=== PATIENT | female | born 1935 | race African-American/Black ===

== ENCOUNTER 2022-10-20 00:53 | Inpatient (IN) | payer MEDICARE, MEDICAID ==
[2022-10-20] MEDS ORDERED: Acetaminophen 325 MG TAB PER TUBE PRN (02:53)
[2022-10-20] MEDS: Sodium Chloride 0.45% 1,000 ML IV SCH ×2 (03:22→16:36)
[2022-10-20] MEDS: metroNIDAZOLE 500 MG in Premix Bag 1 BAG IVPB SCH ×2 (04:02→11:20)
[2022-10-20 05:01] LABS: #Monocytes 0.4 10x3/uL (0.0-1.1); #Neutrophils 12.4 10x3/uL (1.5-8.4); %Basophils 0.1 % (0.0-2.0); %Lymphocytes 7.5 % (18.0-47.0); Hemoglobin 7.6 g/dL (12.0-15.5); Mean Corpuscular Hemoglobin 24.4 pg (27.0-33.0); Mean Corpuscular Volume 81.4 fl (81.6-98.3); Mean Platelet Volume 10.1 fl (7.4-10.4); Platelet Count 460 10x3/uL (150-450); RBC Distribution Width 18.6 % (11.5-14.5); Red Blood Cell (RBC) Count 3.11 10x6/uL (3.90-5.03)
[2022-10-20 05:14] LABS: Anion Gap 13 mmol/L (10-20); BUN (Urea Nitrogen) 10 mg/dL (9.8-20.1); Calc. Creatinine Clearance 24 mL/min (70-130); Calcium 8.7 mg/dL (7.8-10.44); Carbon Dioxide 19 mmol/L (23-31); Chloride 114 mmol/L (98-107); Estimated GFR 87; Glucose 181 mg/dL (83-110); Magnesium 2.3 mg/dL (1.6-2.6); Potassium 4.2 mmol/L (3.5-5.1); Sodium 142 mmol/L (136-145)
[2022-10-20] MEDS: Oseltamivir 6 MG/ML ORAL SUSP PO SCH ×3 (08:25→23:58)
[2022-10-20] MEDS ORDERED: FLU VACC QS2022-23(65YR UP)/PF 240 MCG/0.7 ML SYRINGE IM ONE (09:00)
[2022-10-21] MEDS: metroNIDAZOLE 500 MG in Premix Bag 1 BAG IVPB SCH ×5 (02:54→22:24)
[2022-10-21] MEDS: Levothyroxine Sodium 50 MCG TAB PO SCH (05:48)
[2022-10-21] MEDS: Sodium Chloride 0.45% 1,000 ML IV SCH ×2 (07:19→20:05)
[2022-10-21] MEDS: Oseltamivir 6 MG/ML ORAL SUSP PO SCH ×2 (09:33→22:24)
[2022-10-21] MEDS: Lansoprazole 3 MG/ML ORAL SUSPENSION PER TUBE SCH (09:33)
[2022-10-22 05:16] LABS: #Monocytes 0.8 10x3/uL (0.0-1.1); #Neutrophils 5.2 10x3/uL (1.5-8.4); %Basophils 0.4 % (0.0-2.0); %Eosinophils 0.5 % (0.0-6.0); %Lymphocytes 25.8 % (18.0-47.0); %Monocytes 9.5 % (0.0-10.0); %Neutrophils 63.3 % (40.0-75.0); Hemoglobin 7.4 g/dL (12.0-15.5); Mean Corpuscular HGB CONC 29.2 g/dL (32.0-36.0); Mean Corpuscular Hemoglobin 23.5 pg (27.0-33.0); Mean Corpuscular Volume 80.3 fl (81.6-98.3); Mean Platelet Volume 10.2 fl (7.4-10.4); Platelet Count 493 10x3/uL (150-450); RBC Distribution Width 18.6 % (11.5-14.5); Red Blood Cell (RBC) Count 3.15 10x6/uL (3.90-5.03); White Blood Cell (WBC) Count 8.2 10x3/uL (3.5-10.5)
[2022-10-22 05:31] LABS: ALT (SGPT) 39 U/L (8-55); AST (SGOT) 22 U/L (5-34); Albumin 2.6 g/dL (3.4-4.8); Alkaline Phosphatase 227 U/L (40-110); Anion Gap 11 mmol/L (10-20); BUN (Urea Nitrogen) 12 mg/dL (9.8-20.1); Bilirubin, Total 0.3 mg/dL (0.2-1.2); Calc. Creatinine Clearance 62 mL/min (70-130); Calcium 8.6 mg/dL (7.8-10.44); Carbon Dioxide 21 mmol/L (23-31); Chloride 112 mmol/L (98-107); Estimated GFR 87; Globulin 3.5 g/dL (2.4-3.5); Glucose 95 mg/dL (83-110); Potassium 3.8 mmol/L (3.5-5.1); Protein, Total 6.1 g/dL (5.8-8.1); Sodium 140 mmol/L (136-145)
[2022-10-22] MEDS ORDERED: D5W IVPB SCH (06:00)
[2022-10-22] MEDS ORDERED: CIPROFLOXACIN LACTATE IVPB SCH (06:00)
[2022-10-22] MEDS: metroNIDAZOLE 500 MG in Premix Bag 1 BAG IVPB SCH ×3 (06:09→21:56)
[2022-10-22] MEDS: Levothyroxine Sodium 50 MCG TAB PO SCH (06:09)
[2022-10-22 06:58] LABS: Anisocytosis SLIGHT = 6-15 cells (100X) (0-5/hpf); Hypochromia MODERATE=16-30 cells (100X) (0-5/hpf); Microcytosis SLIGHT = 6-15 cells (100X) (0-5/hpf)
[2022-10-22 06:59] LABS: Schistocytes SLIGHT = 2-5 cells (100X) (0-1/hpf)
[2022-10-22 07:00] LABS: Platelet Morphology Comment Appears Increased
[2022-10-22] MEDS: Sodium Chloride 0.45% 1,000 ML IV SCH ×3 (09:51→21:56)
[2022-10-22] MEDS: Lansoprazole 3 MG/ML ORAL SUSPENSION PER TUBE SCH (09:51)
[2022-10-22] MEDS: Oseltamivir 6 MG/ML ORAL SUSP PO SCH ×2 (09:51→21:55)
[2022-10-22] MEDS: Ciprofloxacin Lactate/D5W 200 MG in Premix Bag 1 BAG IVPB SCH ×2 (17:19→19:16)
[2022-10-23] MEDS: metroNIDAZOLE 500 MG in Premix Bag 1 BAG IVPB SCH ×3 (03:41→20:14)
[2022-10-23] MEDS: Ciprofloxacin Lactate/D5W 200 MG in Premix Bag 1 BAG IVPB SCH ×4 (04:56→17:54)
[2022-10-23] MEDS: Levothyroxine Sodium 50 MCG TAB PO SCH (04:57)
[2022-10-23 05:30] LABS: Hemoglobin 7.6 g/dL (12.0-15.5); Platelet Count 490 10x3/uL (150-450)
[2022-10-23] MEDS: Oseltamivir 6 MG/ML ORAL SUSP PO SCH ×2 (09:18→20:17)
[2022-10-23] MEDS: Lansoprazole 3 MG/ML ORAL SUSPENSION PER TUBE SCH (09:18)
[2022-10-24] MEDS: metroNIDAZOLE 500 MG in Premix Bag 1 BAG IVPB SCH ×3 (03:18→21:11)
[2022-10-24] MEDS: Ciprofloxacin Lactate/D5W 200 MG in Premix Bag 1 BAG IVPB SCH ×4 (05:14→18:33)
[2022-10-24 05:38] LABS: Hemoglobin 7.3 g/dL (12.0-15.5); Platelet Count 498 10x3/uL (150-450)
[2022-10-24] MEDS: Levothyroxine Sodium 50 MCG TAB PO SCH (06:00)
[2022-10-24] MEDS: Lansoprazole 3 MG/ML ORAL SUSPENSION PER TUBE SCH (08:17)
[2022-10-24] MEDS: Oseltamivir 6 MG/ML ORAL SUSP PO SCH ×2 (08:18→21:14)
[2022-10-25] MEDS: metroNIDAZOLE 500 MG in Premix Bag 1 BAG IVPB SCH ×3 (04:24→20:04)
[2022-10-25] MEDS: Ciprofloxacin Lactate/D5W 200 MG in Premix Bag 1 BAG IVPB SCH ×4 (05:40→18:02)
[2022-10-25 05:41] LABS: Hemoglobin 7.5 g/dL (12.0-15.5); Platelet Count 506 10x3/uL (150-450)
[2022-10-25] MEDS: Levothyroxine Sodium 50 MCG TAB PO SCH (06:24)
[2022-10-25] MEDS: Lansoprazole 3 MG/ML ORAL SUSPENSION PER TUBE SCH (08:48)
[2022-10-25 12:26] VITALS: BMI 23.1
[2022-10-26] MEDS: metroNIDAZOLE 500 MG in Premix Bag 1 BAG IVPB SCH ×3 (04:03→20:10)
[2022-10-26 05:17] LABS: #Monocytes 1.4 10x3/uL (0.0-1.1); #Neutrophils 5.8 10x3/uL (1.5-8.4); %Basophils 0.3 % (0.0-2.0); %Eosinophils 0.3 % (0.0-6.0); %Monocytes 14.4 % (0.0-10.0); %Neutrophils 58.5 % (40.0-75.0); Hemoglobin 7.6 g/dL (12.0-15.5); Mean Corpuscular HGB CONC 30.5 g/dL (32.0-36.0); Mean Corpuscular Hemoglobin 24.1 pg (27.0-33.0); Mean Corpuscular Volume 78.8 fl (81.6-98.3); Mean Platelet Volume 9.6 fl (7.4-10.4); Platelet Count 513 10x3/uL (150-450); RBC Distribution Width 18.6 % (11.5-14.5); Red Blood Cell (RBC) Count 3.16 10x6/uL (3.90-5.03); White Blood Cell (WBC) Count 9.8 10x3/uL (3.5-10.5)
[2022-10-26] MEDS: Ciprofloxacin Lactate/D5W 200 MG in Premix Bag 1 BAG IVPB SCH ×4 (05:20→19:17)
[2022-10-26] MEDS: Levothyroxine Sodium 50 MCG TAB PO SCH (05:25)
[2022-10-26 05:37] LABS: ALT (SGPT) 16 U/L (8-55); AST (SGOT) 23 U/L (5-34); Albumin 2.4 g/dL (3.4-4.8); Alkaline Phosphatase 246 U/L (40-110); Anion Gap 10 mmol/L (10-20); BUN (Urea Nitrogen) 10 mg/dL (9.8-20.1); Bilirubin, Total 0.2 mg/dL (0.2-1.2); Calc. Creatinine Clearance 61 mL/min (70-130); Calcium 8.6 mg/dL (7.8-10.44); Carbon Dioxide 23 mmol/L (23-31); Chloride 114 mmol/L (98-107); Estimated GFR 88; Glucose 98 mg/dL (83-110); Potassium 3.7 mmol/L (3.5-5.1); Protein, Total 5.4 g/dL (5.8-8.1); Sodium 143 mmol/L (136-145)
[2022-10-26] MEDS: Lansoprazole 3 MG/ML ORAL SUSPENSION PER TUBE SCH (09:24)
[2022-10-27] MEDS: metroNIDAZOLE 500 MG in Premix Bag 1 BAG IVPB SCH ×3 (03:53→22:16)
[2022-10-27] MEDS: Levothyroxine Sodium 50 MCG TAB PO SCH (04:02)
[2022-10-27] MEDS: Ciprofloxacin Lactate/D5W 200 MG in Premix Bag 1 BAG IVPB SCH ×4 (05:19→18:39)
[2022-10-27 05:44] LABS: #Eosinphils 0.1 10x3/uL (0.0-0.5); #Monocytes 1.2 10x3/uL (0.0-1.1); #Neutrophils 4.8 10x3/uL (1.5-8.4); %Basophils 0.4 % (0.0-2.0); %Eosinophils 0.9 % (0.0-6.0); %Lymphocytes 25.3 % (18.0-47.0); %Monocytes 14.7 % (0.0-10.0); %Neutrophils 58.1 % (40.0-75.0); ALT (SGPT) 14 U/L (8-55); AST (SGOT) 14 U/L (5-34); Albumin 2.4 g/dL (3.4-4.8); Alkaline Phosphatase 207 U/L (40-110); Anion Gap 9 mmol/L (10-20); BUN (Urea Nitrogen) 8 mg/dL (9.8-20.1); Bilirubin, Total 0.2 mg/dL (0.2-1.2); Calc. Creatinine Clearance 59 mL/min (70-130); Calcium 8.6 mg/dL (7.8-10.44); Carbon Dioxide 22 mmol/L (23-31); Chloride 117 mmol/L (98-107); Estimated GFR 87; Globulin 3.2 g/dL (2.4-3.5); Glucose 117 mg/dL (83-110); Hemoglobin 8.4 g/dL (12.0-15.5); Mean Corpuscular HGB CONC 29.8 g/dL (32.0-36.0); Mean Corpuscular Hemoglobin 23.6 pg (27.0-33.0); Mean Corpuscular Volume 79.2 fl (81.6-98.3); Mean Platelet Volume 9.4 fl (7.4-10.4); Platelet Count 535 10x3/uL (150-450); Potassium 3.4 mmol/L (3.5-5.1); Protein, Total 5.6 g/dL (5.8-8.1); RBC Distribution Width 18.6 % (11.5-14.5); Red Blood Cell (RBC) Count 3.56 10x6/uL (3.90-5.03); Sodium 145 mmol/L (136-145); White Blood Cell (WBC) Count 8.2 10x3/uL (3.5-10.5)
[2022-10-27] MEDS: Lansoprazole 3 MG/ML ORAL SUSPENSION PER TUBE SCH (10:22)
[2022-10-28] MEDS: metroNIDAZOLE 500 MG in Premix Bag 1 BAG IVPB SCH ×3 (05:34→21:43)
[2022-10-28] MEDS: Ciprofloxacin Lactate/D5W 200 MG in Premix Bag 1 BAG IVPB SCH ×2 (05:39→05:40)
[2022-10-28] MEDS: Levothyroxine Sodium 50 MCG TAB PO SCH (05:39)
[2022-10-28] MEDS: Lansoprazole 3 MG/ML ORAL SUSPENSION PER TUBE SCH (09:35)
[2022-10-28] MEDS ORDERED: Potassium Chloride 20 MEQ in Premix Bag 1 BAG IVPB SCH ×2 (18:45→21:30)
[2022-10-29] MEDS: metroNIDAZOLE 500 MG in Premix Bag 1 BAG IVPB SCH (05:52)
[2022-10-29] MEDS: Levothyroxine Sodium 50 MCG TAB PO SCH (06:18)
[2022-10-29] MEDS: Lansoprazole 3 MG/ML ORAL SUSPENSION PER TUBE SCH (08:38)
[2022-10-29 09:13] VITALS: TEMP 98
[2022-10-29 10:21] VITALS: BP 135/75
== END 2022-10-29 12:00 | disposition home health service (06) | DRG 872 ==
LOC: INTOOBSV 00:53 → CSHTELE 00:53 → OBSVTOIN 10-22 08:51
PROVIDERS: ADMIT Family Medicine; ATTEND Internal Medicine
DX: A41.89 Other specified sepsis (principal); K86.2 Cyst of pancreas; R47.01 Aphasia; K52.9 Noninfective gastroenteritis and colitis, unspecified; Z51.5 Encounter for palliative care; Z66 Do not resuscitate; L89.899 Pressure ulcer of other site, unspecified stage; J44.9 Chronic obstructive pulmonary disease, unspecified; K81.1 Chronic cholecystitis; M24.561 Contracture, right knee; M24.562 Contracture, left knee; I27.20 Pulmonary hypertension, unspecified; J10.1 Influenza due to other identified influenza virus with other respiratory manifestations; R13.10 Dysphagia, unspecified; R62.7 Adult failure to thrive; E03.9 Hypothyroidism, unspecified; D53.9 Nutritional anemia, unspecified; F03.C0 Unspecified dementia, severe, without behavioral disturbance, psychotic disturbance, mood disturbance, and anxiety; Z87.19 Personal history of other diseases of the digestive system; Z74.01 Bed confinement status; Z86.73 Personal history of transient ischemic attack (TIA), and cerebral infarction without residual deficits; Z79.01 Long term (current) use of anticoagulants; Z79.890 Hormone replacement therapy; Z68.23 Body mass index [BMI] 23.0-23.9, adult; Z86.718 Personal history of other venous thrombosis and embolism; Z79.51 Long term (current) use of inhaled steroids; Z93.1 Gastrostomy status; Z79.899 Other long term (current) drug therapy
CPT/HCPCS: 36415; 80048; 80053; 83735; 85014; 85018; 85025; 85049; 96372; 96374; 96375; 96376; 97139; G0378; J0744; J1650; J3480

== ENCOUNTER 2024-03-24 08:11 | Outpatient (CLI) | payer MEDICARE, OTHER | END 2024-03-24 08:12 | disposition home or self-care (01) | LOC: CSHCT 08:11 | PROVIDERS: ATTEND Surgery | DX: K65.0 Generalized (acute) peritonitis (principal) | CPT/HCPCS: 74177; 82565 ==

== ENCOUNTER 2024-09-11 01:29 | Observation (INO) | payer MEDICARE, MEDICAID ==
[2024-09-11] MEDS ORDERED: Acetaminophen 650 MG Suppository PR PRN (02:46)
[2024-09-11] MEDS ORDERED: Ondansetron PF 4 MG/2 ML Vial IVP PRN (02:46)
[2024-09-11] MEDS ORDERED: Acetaminophen 325 MG TAB PO PRN (02:46)
[2024-09-11 04:56] LABS: Anion Gap 12 mmol/L (10-20); BUN (Urea Nitrogen) 11 mg/dL (9.8-20.1); Calc. Creatinine Clearance 53 mL/min (70-130); Calcium 8.7 mg/dL (7.8-10.44); Carbon Dioxide 21 mmol/L (23-31); Chloride 114 mmol/L (98-107); Estimated GFR 86; Glucose 83 mg/dL (83-110); Iron 103 ug/dL (50-170); Iron Binding Capacity, Total 219 mcg/dL (265-497); Potassium 4.1 mmol/L (3.5-5.1); Sodium 143 mmol/L (136-145)
[2024-09-11 05:09] LABS: Ferritin 120.96 ng/mL (10-291); Thyroid Stimulating Hormone 4.2168 uIU/mL (0.35-4.94)
[2024-09-11] MEDS: Levothyroxine Sodium 50 MCG TAB PER TUBE SCH (06:11)
[2024-09-11 08:28] LABS: Hematocrit 32.9 % (34.9-44.5)
[2024-09-11] MEDS: Amoxicillin/Potassium Clav 875 MG TAB PER TUBE SCH (09:25)
[2024-09-11] MEDS: Famotidine/PF 20 mg/2ml Vial SLOW IVP SCH (09:25)
[2024-09-11] MEDS: Ferrous Sulfate 300 MG (5 mL) UDCUP PER TUBE SCH (09:25)
[2024-09-11 11:19] LABS: Hematocrit 30.8 % (34.9-44.5); Hemoglobin 9.4 g/dL (12.0-15.5)
[2024-09-11 12:29] VITALS: BMI 20.9
[2024-09-12 04:17] LABS: #Basophils 0.03 10x3/uL (0.0-0.2); #Eosinophils 0.08 10x3/uL (0.0-0.5); #Monocytes 1.36 10x3/uL (0.0-1.1); %Basophils 0.2 % (0.0-2.0); %Eosinophils 0.7 % (0.0-6.0); %Lymphocytes 12.8 % (18.0-47.0); %Monocytes 11.2 % (0.0-10.0); %Neutrophils 74.6 % (40.0-75.0); Hemoglobin 8.8 g/dL (12.0-15.5); Mean Corpuscular HGB CONC 29.3 g/dL (32.0-36.0); Mean Corpuscular Hemoglobin 22.6 pg (27.0-33.0); Mean Corpuscular Volume 77.1 fL (81.6-98.3); Mean Platelet Volume 9.2 fL (7.4-10.4); Platelet Count 573 10x3/uL (150-450); RBC Distribution Width 18.8 % (11.5-14.5); Red Blood Cell (RBC) Count 3.89 10x6/uL (3.90-5.03); White Blood Cell (WBC) Count 12.2 10x3/uL (3.5-10.5)
[2024-09-12 05:38] VITALS: BMI 21.3
[2024-09-12 11:29] VITALS: BP 141/88; TEMP 97.6
== END 2024-09-12 15:37 ==
LOC: CSHTELE 01:56
PROVIDERS: ADMIT Family Medicine; ATTEND Internal Medicine
DX: D64.9 Anemia, unspecified (principal); I95.9 Hypotension, unspecified; I27.20 Pulmonary hypertension, unspecified; I10 Essential (primary) hypertension; E78.5 Hyperlipidemia, unspecified; E03.9 Hypothyroidism, unspecified; F03.90 Unspecified dementia, unspecified severity, without behavioral disturbance, psychotic disturbance, mood disturbance, and anxiety; Z86.73 Personal history of transient ischemic attack (TIA), and cerebral infarction without residual deficits; Z79.890 Hormone replacement therapy; Z79.2 Long term (current) use of antibiotics; Z79.51 Long term (current) use of inhaled steroids; Z79.899 Other long term (current) drug therapy
CPT/HCPCS: 80048; 82728; 83540; 83550; 84145; 84443; 85014; 85018; 85025; 85046; 94760 ×2; 94762; 96374; 96376 ×2; G0378 ×2; J3490 ×2; 36415